=== PATIENT | female | born 1940 | race Caucasian/White ===

== ENCOUNTER → 2017-07-13 | Outpatient (CLI) | payer MEDICARE, OTHER ==
--- NOTE | 2017-07-14 09:44 | US ---
EXAM DESCRIPTION: Carotid Duplex: Ultrasound. CLINICAL HISTORY: BRUIT COMPARISON: None. TECHNIQUE: Transcutaneous scanning utilizing 2-dimensional and Doppler modes to evaluate the bilateral carotid systems and vertebral arteries. Percentage of diameter of stenosis or no stenosis recorded will be based upon NASCET criteria. FINDINGS: Peak systolic/end diastolic (CM-Sec) CCA Right 106/9 Left 91/14. ICA Right proximal 44/8, distal 78/15. Left proximal 63/15, Distal 65/19. Vertebral Right 83/18 Left 81/18. ECA (PS Only) Right 74 left 89. ICA/CCA peak systolic ratio: Right 0.7 Left 0.7 ICA/CCA end diastolic ratio: Right 1.7 Left 1.3 Vertebral arteries: antegrade flow. Comments: Atherosclerotic calcification bilateral common carotid bifurcations and proximal ICAs. Spectral broadening and color turbulent flow in the bilateral distal ICAs. Atherosclerotic calcification with area stenosis of 22% in the right CCA bulb. 18% diameter stenosis. Less than 10% area stenosis in the left CCA bulb. IMPRESSION: 1. Doppler evaluation of the bilateral carotid systems and vertebral arteries shows no hemodynamically significant stenoses. 2. No significant amount of plaque seen in the carotid arteries bilaterally. Bilateral vertebral arteries showed antegrade-cephalad flow. Electronically signed by: Todd Cerda MD 07/14/2017 9:43 AM CDT
== END | disposition home or self-care (01) ==
LOC: US 19:31
PROVIDERS: ATTEND Family Medicine
DX: I65.22 Occlusion and stenosis of left carotid artery (principal)

== ENCOUNTER → 2020-06-21 | Outpatient (CLI) | payer MEDICARE, OTHER ==
--- NOTE | 2020-06-22 07:12 | RAD ---
EXAM DESCRIPTION: Knee,Right Complete CLINICAL HISTORY: 79 years Female, PAIN IN RIGHT KNEE COMPARISON: None. Findings: Four views/radiographs Location: Right knee No acute fracture or dislocation. Mild right knee osteoarthritis. Small scattered osteophytes. Osteopenia. No significant joint effusion. Lateral patellofemoral narrowing. IMPRESSION: No evidence of acute process in the right knee. Electronically signed by: Isidoro Vasquez MD 06/22/2020 6:44 AM CDT
--- NOTE | 2020-06-24 14:04 | MAM ---
EXAM DESCRIPTION: 3D Screening BILATERAL : Digital Mammography. CLINICAL HISTORY: 79 years Female ANNUAL SCREENING . No complaints. No family history breast cancer. Menarche age 14. Childbirth age 30. Menopause age unknown. No HRT. Lifetime risk of developing breast cancer (Tyrer-Cuzick model)(%): 3.7. COMPARISON: Baseline study at this facility. Prior mammograms are not yet available. TECHNIQUE: Bilateral CC and MLO projection full-field images, digital tomosynthesis mammographic technique. Bilateral digital 2-D full-field MLO images. CAD available for 2-D images. FINDINGS: The breast parenchymal density pattern is: Scattered areas of fibroglandular density. No skin thickening or nipple retraction. Vascular calcifications bilaterally. Solitary microcalcifications. Left axillary lymph node. No focal, stellate mass or density, focal asymmetry , and no suspicious microcalcifications bilaterally. IMPRESSION: Benign exam. BIRAD CATEGORY: 2 BENIGN FINDINGS. RECOMMENDATIONS: FOLLOW UP: Routine digital bilateral mammographic screening, one year interval from June 2020. Written communication explaining the IMPRESSION and follow-up, will be mailed to the patient and referring health care provider. According to the [employer], yearly mammograms are recommended starting at age 40 and continuing as long as a woman is in good health. Any breast change noted on a breast self-exam should be reported promptly to the patient's healthcare provider. Breast MRI is recommended for women with an approximately 20-25% or greater lifetime risk of breast cancer, including women with a strong family history of breast or ovarian cancer and women who have been treated for Hodgkin's disease. A negative mammographic report should not delay tissue diagnosis in patients with significant clinical history or physical findings. Extremely dense breast tissue limits the sensitivity of digital mammography. Electronically signed by: Todd Cerda MD 06/24/2020 2:02 PM CDT
== END ==
LOC: RAD 09:08
PROVIDERS: ATTEND Orthopaedic Surgery
DX: Z12.31 Encounter for screening mammogram for malignant neoplasm of breast (principal); M25.561 Pain in right knee; M25.551 Pain in right hip

== ENCOUNTER 2020-07-03 14:42 | Emergency (ER) | payer MEDICARE, OTHER ==
[2020-07-03 14:56] VITALS: TEMP 98.4
--- NOTE | 2020-07-03 15:08 | ED.PDOC ---
History of Present Illness - General Chief Complaint: Abdominal Pain Stated Complaint: LLQ abdominal pain Time Seen by Provider: 07/03/20 14:47 - History of Present Illness Initial Comments: 79 yo F with 2 days of intermittent LLQ abdominal pain. Pain started yesterday. not associated with n/v/d. no black or bloody bm. not worse with position. does not radiate. seem to subside, but came back. no dysuria or hematuria. Hx of appendicitis. no vaginal discharge or bleeding. Does not have pain currently. Patient is on a diet, started taking Kelvin, has lost 10lbs. Review of Systems - Review of Systems Constitutional: Denies: chills, fever EENTM: Denies: blurred vision, ear pain, nose pain, throat pain, mouth pain Respiratory: Denies: cough, orthopnea, short of breath, stridor, wheezing Cardiology: Denies: chest pain, edema, palpitations, syncope Gastrointestinal/Abdominal: States: abdominal pain. Denies: constipation, diarrhea, nausea, vomiting Genitourinary: Denies: discharge, dysuria, frequency, hematuria, pain Past Medical History (General) - Patient Medical History Hx Seizures: No Hx Stroke: No Hx Dementia: No Hx Asthma: No Hx of COPD: No Hx Cardiac Disorders: No Hx Congestive Heart Failure: No Hx Pacemaker: No Hx Hypertension: Yes Hx Thyroid Disease: No Hx Diabetes: Yes Hx Gastroesophageal Reflux: Yes Hx Renal Disease: No Hx Cancer: No Hx of HIV: No Hx Hepatitis C: No Hx MRSA: No Surgical History: appendectomy - Vaccination History Hx Tetanus, Diphtheria Vaccination: Yes Hx Influenza Vaccination: Yes Hx Pneumococcal Vaccination: Yes - Social History Hx Tobacco Use: Yes Hx Chewing Tobacco Use: No Hx Alcohol Use: No Hx Substance Use: No Hx Substance Use Treatment: No Hx Depression: No Hx Physical Abuse: No Hx Emotional Abuse: No Hx Suspected Abuse: No - Female History Patient : No Family Medical History - Family History Mother Family History: Unknown Living Status: Unknown Hx Family Diabetes: Yes Physical Exam - Physical Exam General Appearance: Alert, Comfortable, No apparent distress, Well Developed, Well Groomed, Well Hydrated, Well Nourished, Other - stable gait. Eyes, Ears, Nose, Throat Exam: PERRL/EOMI, normal ENT inspection Neck: non-tender, full range of motion, supple, normal inspection Respiratory: chest non-tender, lungs clear, normal breath sounds, no respiratory distress, no accessory muscle use Cardiovascular/Chest: normal peripheral pulses, regular rate, rhythm, no edema, no gallop, no JVD, no murmur Peripheral Pulses: 2+ Gastrointestinal/Abdominal: normal bowel sounds, non tender, soft, no organomegaly, no pulsatile mass Rectal Exam: deferred Back Exam: normal inspection, no CVA tenderness, no vertebral tenderness Extremity: normal range of motion, non-tender, normal inspection, no pedal edema, no calf tenderness, normal capillary refill Neurologic: radio 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 will get blood work and CT scan. Patient declines anything for pain at this time. 07/03/20 15:59 pain return suprapubic radiates to left LLQ, denies cramping, sharpness states its just "pain". Given motrin. CT shows: Gallstones without other changes to suggest acute cholecystitis. No acute upper abdominal process. Large left pelvic cyst likely arising from the left ovary 5.7 cm. We will order pelvic ultrasound to further evaluate. 07/03/20 17:35 US shows left simple cyst, recommend annual follow up. 07/03/20 17:41 The data reviewed when caring for this patient included: nurse notes, prior records, etc. The history and assessments from nurses notes were reviewed and considered, and the patient's home medication list was also reviewed and considered. My assessment and the results of testing completed here in the ED were discussed with the patient/family. All questions were answered, and they express understanding of my assessment and the plan. They have been instructed to return if their symptoms worsen, and have been asked to follow up with their primary care physician to recheck today's presenting complaint. Strict abdominal return precautions given. vss, no current pain. patient discharged in stable condition. Breanna Rios DO #[id number] - Results/Orders Results/Orders: 07/03/20 17:40 Discharge Stat Laboratory Results WBC 10.9 K/mm3 (4.8-10.8) H 07/03/20 15:05 RBC 4.31 M/mm3 (4.20-5.40) 07/03/20 15:05 Hgb 12.7 gm/dL (12.0-16.0) 07/03/20 15:05 Hct 38.1 % (36.0-47.0) 07/03/20 15:05 MCV 88.2 fl (81.0-99.0) 07/03/20 15:05 MCH 29.5 pg (27.0-31.0) 07/03/20 15:05 MCHC 33.5 g/dL (33.0-37.0) 07/03/20 15:05 RDW 14.9 % (11.5-14.5) H 07/03/20 15:05 Plt Count 486 K/mm3 (130-400) H 07/03/20 15:05 MPV 8.0 fl (7.40-10.4) 07/03/20 15:05 Absolute Neuts (auto) 6.00 K/uL (1.8-6.8) 07/03/20 15:05 Absolute Lymphs (auto) 3.70 K/uL (1.0-3.4) H 07/03/20 15:05 Absolute Monos (auto) 0.80 K/uL (0.2-0.8) 07/03/20 15:05 Absolute Eos (auto) 0.20 K/uL (0.0-0.4) 07/03/20 15:05 Absolute Basos (auto) 0.10 K/uL (0.0-0.1) 07/03/20 15:05 Neutrophils % 55.1 % (42.0-78.0) 07/03/20 15:05 Lymphocytes % 34.4 % (20.0-50.0) 07/03/20 15:05 Monocytes % 7.3 % (2.0-9.0) 07/03/20 15:05 Eosinophils % 2.3 % (1.0-5.0) 07/03/20 15:05 Basophils % 0.9 % (0.0-2.0) 07/03/20 15:05 Sodium 136 mmol/L (135-145) 07/03/20 15:05 Potassium 5.1 mmol/L (3.6-5.0) H 07/03/20 15:05 Chloride 103 mmol/L (101-111) 07/03/20 15:05 Carbon Dioxide 24 mmol/L (21-31) 07/03/20 15:05 Anion Gap 14.1 (12-18) 07/03/20 15:05 BUN 36 mg/dL (7-18) H 07/03/20 15:05 Creatinine 1.18 mg/dL (0.6-1.3) 07/03/20 15:05 BUN/Creatinine Ratio 30.5 (10-20) H 07/03/20 15:05 Random Glucose 148 mg/dL (70-105) H 07/03/20 15:05 Serum Osmolality 283.0 mOsm/L (275-295) 07/03/20 15:05 Calcium 10.3 mg/dL (8.4-10.2) H 07/03/20 15:05 Total Bilirubin 0.5 mg/dL (0.2-1.0) 07/03/20 15:05 AST 34 IU/L (10-42) 07/03/20 15:05 ALT 43 IU/L (10-60) 07/03/20 15:05 Alkaline Phosphatase 56 IU/L (42-121) 07/03/20 15:05 Serum Total Protein 8.5 gm/dL (6.4-8.2) H 07/03/20 15:05 Albumin 4.2 g/dl (3.2-5.5) 07/03/20 15:05 Globulin 4.3 gm/dL (2.3-3.5) H 07/03/20 15:05 Albumin/Globulin Ratio 1.0 (1.1-1.9) L 07/03/20 15:05 Lipase 35 U/L (22-51) 07/03/20 15:05 Urine Color Yellow (Yellow) 07/03/20 17:24 Urine Appearance Clear (Clear) 07/03/20 17:24 Urine pH 5.0 (4.5-7.8) 07/03/20 17:24 Ur Specific [place] 1.010 (1.005-1.030) 07/03/20 17:24 Urine Protein Negative mg/dL 07/03/20 17:24 Urine Glucose (UA) Negative mg/dL (Negative) 07/03/20 17:24 Urine Ketones Negative mg/dL (NEGATIVE) 07/03/20 17:24 Urine Blood Negative (Negative) 07/03/20 17:24 Urine Nitrite Negative 07/03/20 17:24 Urine Bilirubin Negative (NEGATIVE) 07/03/20 17:24 Urine Urobilinogen 0.2 mg/dL (0.2-1.0) 07/03/20 17:24 Ur Leukocyte Esterase Negative (Negative) 07/03/20 17:24 Urine RBC 0 /hpf 07/03/20 17:24 Urine WBC 0 /hpf 07/03/20 17:24 Ur Epithelial Cells 0-1 /hpf 07/03/20 17:24 Urine Bacteria 0 07/03/20 17:24 Departure - Departure Clinical Impression: Cholelithiasis Qualifiers: Cholelithiasis location: gallbladder Cholecystitis presence: without cholecystitis Biliary obstruction: without biliary obstruction Qualified Code(s): K80.20 - Calculus of gallbladder without cholecystitis without obstruction Abdominal pain Qualifiers: Abdominal location: left lower quadrant Qualified Code(s): R10.32 - Left lower quadrant pain ICD-10 Supporting Text: Pelvic cyst - recommend follow up ultrasound in one year. Elevated Platelets, elevated globulin level. mild elevated K. recommend repeat blood work in one week. Time of Disposition: 17:40 Disposition: Discharge to Home or Self Care Departure Forms: ED Discharge - Pt. Copy, Patient Portal Self Enrollment Instructions: DI for Abdominal Pain-Adult, Ovarian Cysts, Acute Abdomen (Belly Pain), Adult (DC) Referrals: Jorge L William MD [Primary Care Provider] - 1-5 Days Home Medications: Ambulatory Orders Escitalopram Oxalate [Lexapro] 5 mg PO DAILY 07/03/20 Esomeprazole Magnesium 40 mg PO DAILY 07/03/20 Gabapentin 300 mg PO BID 07/03/20 Lisinopril 10 mg PO DAILY 07/03/20 Metformin HCl [Metformin Hydrochloride E] 500 mg PO DAILY 07/03/20 Rosuvastatin Calcium [Crestor] 10 mg PO DAILY 07/03/20
[2020-07-03] MEDS ORDERED: IBUPROFEN 200 MG TAB PO ONE (15:38)
--- NOTE | 2020-07-03 15:41 | CT ---
EXAM DESCRIPTION: Abdoment/Pelvis w/o Contrast CLINICAL HISTORY: 79 years, Female, LLQ pain COMPARISON: None. TECHNIQUE: CT of the abdomen and pelvis is performed according to our non contrast protocol. FINDINGS: The lung bases are clear except for mild pericardiac parenchymal scarring. Heart size is normal. Liver and pancreas are unremarkable. The spleen is very small in size measuring 3.0 cm. Positive tiny calcified stones in the gallbladder. No surrounding inflammation. Adrenal glands appear normal. The right kidney is unremarkable. The left kidney is unremarkable. No renal stones or hydronephrosis. Small bowel loops appear normal in caliber with normal wall thickness. There is no lymphadenopathy, inflammation, or free fluid observed. In the pelvis, the appendix is normal. No inflammation around the cecum or terminal ileum or sigmoid colon. No stones in the distal ureters or bladder. Rectal wall thickness is normal for degree of distention. No free fluid or mass in the pelvis. The uterus appears normal. Cystic lesion in the left adnexal region 5.7 x 6 cm may be a cyst or a left ovary. At this size, standard recommendation is for prompt follow-up with pelvic sonography (Reference: J Am Elizabet Radiol 2013;10:675-681). Right ovary is normal in size. No inguinal or lower pelvic adenopathy. Coronal and sagittal reformatted images confirm the findings. Multiple sigmoid diverticula are present containing oral contrast but there is no inflammation to suggest acute diverticulitis. IMPRESSION: Gallstones without other changes to suggest acute cholecystitis. No acute upper abdominal process. Large left pelvic cyst likely arising from the left ovary 5.7 cm. Pelvic sonography recommended. This exam was performed according to our departmental dose-optimization program, which includes automated exposure control, adjustment of the mA and/or kV according to patient size and/or use of iterative reconstruction technique. Total DLP equals 1160.32 mGycm. Electronically signed by: Carl Tafoya MD 07/03/2020 3:39 PM CDT
[2020-07-03 16:06] VITALS: BP 143/70; O2SAT 94
--- NOTE | 2020-07-03 17:33 | US ---
US PELVIS HISTORY: Left lower quadrant pain. COMPARISON: CT scan from earlier the same day. TECHNIQUE: Grayscale, color Doppler, and spectral Doppler ultrasound images of the pelvis were obtained. FINDINGS: Please note only a transabdominal examination was performed, which limits evaluation. The uterus measures 11.9 x 4.4 x 4.6 cm and is anteverted. The endometrial canal measures 1.4 cm. The left ovary measures 7.8 x 5.5 x 6.8 cm and contains a 5.1 x 5.3 cm cyst. No free fluid is seen. There is suggestion of Doppler color-flow in the left ovary. The right ovary is not seen. IMPRESSION: 5.3 cm simple left ovarian cyst. Recommend follow-up pelvic US annually. Reference: Radiology 2010 Jun;256(3):943-54 Electronically signed by: Deangelo Degroot MD 07/03/2020 5:32 PM CDT
== END 2020-07-03 17:47 | disposition home or self-care (01) ==
LOC: ER 14:42
DX: K80.20 Calculus of gallbladder without cholecystitis without obstruction (principal); R10.32 Left lower quadrant pain; N94.89 Other specified conditions associated with female genital organs and menstrual cycle; E11.9 Type 2 diabetes mellitus without complications; K21.9 Gastro-esophageal reflux disease without esophagitis; I10 Essential (primary) hypertension; Z90.49 Acquired absence of other specified parts of digestive tract; Z87.891 Personal history of nicotine dependence